=== PATIENT | female | born 1995 | race Hispanic/Latino ===

== ENCOUNTER 2022-05-10 12:53 | Emergency (ER) | payer SELFPAY ==
[2022-05-10 13:15] VITALS: BP 135/99
[2022-05-10 14:53] LABS: Basophils # (Auto) 0.1 K/mm3 (0.0-0.1); Eosinophils # (Auto) 0.1 K/mm3 (0.0-0.4); Eosinophils % (Auto) 0.7 % (0.0-4.3); Monocytes # (Auto) 0.6 K/mm3 (0.0-0.8); Monocytes % (Auto) 6.2 % (0.0-7.3)
[2022-05-10 15:25] LABS: Basophils % (Auto) 0.3 % (0.0-1.8); Hematocrit 40.9 % (30.3-42.9); Hemoglobin 13.4 gm/dl (10.1-14.3); Lymphocytes # (Auto) 3.2 K/mm3 (1.2-5.4); Lymphocytes % (Auto) 31.4 % (13.4-35.0); Mean Corpuscular HGB Conc 33 % (30-34); Mean Corpuscular Volume 74 fl (79-97); Platelet Count 276 K/mm3 (140-440); Red Blood Count 5.55 M/mm3 (3.65-5.03)
--- NOTE | 2022-05-10 17:13 | Emergency Department Report ---
ED Female HPI - General Chief complaint: Vaginal Bleeding Stated complaint: PREG WKS?/BLEEDING Time Seen by Provider: 05/10/22 17:11 Source: patient Mode of arrival: Ambulatory Limitations: No Limitations - History of Present Illness Initial comments: Patient is a 26-year-old female that comes to the emergency room with vaginal bleeding after a positive home test. She states that she took several of them within the last 3 weeks. This would be her fifth . Complaint: vaginal bleeding -: Sudden Improves with: none Worsens with: none Are you Now?: Yes Associated Symptoms: denies other symptoms, vaginal bleeding. denies: vaginal discharge, abdominal pain, nausea/vomiting, fever/chills, headaches, loss of appetite, dysuria, hematuria, rash, seizure, shortness of breath, syncope, weakness - Related Data Sexually active: Yes : 4 Allergies Allergy/AdvReac Type Severity Reaction Status Date / Time No Known Allergies Allergy Verified 05/10/22 13:09 ED Review of Systems ROS: Stated complaint: PREG WKS?/BLEEDING Other details as noted in HPI Comment: All other systems reviewed and negative ED Past Medical Hx - Past Medical History Previous Medical History?: No - Surgical History Past Surgical History?: No - Family History Family history: no significant - Social History Smoking Status: Never Smoker Substance Use Type: Alcohol ED Physical Exam - General Limitations: No Limitations General appearance: alert, in no apparent distress - Head Head exam: Present: atraumatic, normocephalic - Eye Eye exam: Present: normal appearance - ENT ENT exam: Present: mucous membranes moist - Neck Neck exam: Present: normal inspection - Respiratory Respiratory exam: Present: normal lung sounds bilaterally. Absent: respiratory distress - Cardiovascular Cardiovascular Exam: Present: regular rate, normal rhythm. Absent: systolic murmur, diastolic murmur, rubs, gallop - GI/Abdominal GI/Abdominal exam: Present: soft, normal bowel sounds - Extremities Exam Extremities exam: Present: normal inspection - Back Exam Back exam: Present: normal inspection - Neurological Exam Neurological exam: Present: alert, oriented X3 - Psychiatric Psychiatric exam: Present: normal affect, normal mood - Skin Skin exam: Present: warm, dry, intact, normal color. Absent: rash ED Course Vital Signs 05/10/22 13:12 Temperature 98.6 F Pulse Rate 112 H Respiratory 16 Rate Blood Pressure 135/99 [Left] O2 Sat by Pulse 99 Oximetry ED Medical Decision Making - Lab Data Result diagrams: 05/10/22 13:53 - Medical Decision Making Lab Results 05/10/22 05/10/22 05/10/22 Range/Units 13:53 13:53 13:53 WBC 10.3 (4.5-11.0) K/mm3 RBC 5.55 H (3.65-5.03) M/mm3 Hgb 13.4 (10.1-14.3) gm/dl Hct 40.9 (30.3-42.9) % MCV 74 L (79-97) fl MCH 24 L (28-32) pg MCHC 33 (30-34) % RDW 14.0 (13.2-15.2) % Plt Count 276 (140-440) K/mm3 Lymph % (Auto) 31.4 (13.4-35.0) % Eagle % (Auto) 6.2 (0.0-7.3) % Eos % (Auto) 0.7 (0.0-4.3) % Baso % (Auto) 0.3 (0.0-1.8) % Lymph # (Auto) 3.2 (1.2-5.4) K/mm3 Eagle # (Auto) 0.6 (0.0-0.8) K/mm3 Eos # (Auto) 0.1 (0.0-0.4) K/mm3 Baso # (Auto) 0.1 (0.0-0.1) K/mm3 Seg Neutrophils % 61.6 (40.0-70.0) % Seg Neutrophils # 6.2 (1.8-7.7) K/mm3 HCG, Quant < 2 (0-4) mIU/mL Blood Type O POSITIVE Vital Signs 05/10/22 13:12 Temperature 98.6 F Pulse Rate 112 H Respiratory 16 Rate Blood Pressure 135/99 [Left] O2 Sat by Pulse 99 Oximetry labs noted hcg quant < 2 Patient informed of her negative test. She states that she took several home test that were positive. This would be her fifth . She endorses vaginal bleeding. She is in no acute distress. Vital signs are normal. Heart rate by provider is 80. Last menstrual period patient does not recall. Patient's abdomen soft nontender. No CVA tenderness. Given hCG of less than 2 and ultrasound has not been a-year-old and a diagnostic value. Patient has been informed of the value. She is to follow-up with [facility]. I have given her referral. Patient being discharged home with discharge plan of care including diet, activity, medications and follow-up. She verbalizes understanding of plan of care. - Differential Diagnosis Rule out Critical care attestation.: If time is entered above; I have spent that time in minutes in the direct care of this critically ill patient, excluding procedure time. ED Disposition Clinical Impression: Negative test Disposition: 01 HOME / SELF CARE / HOMELESS Is pt being admited?: No Does the pt Need Aspirin: No Condition: Stable Additional Instructions: FOLLOW UP WITH OBGYN HCG BLOOD < 2 TODAY (NEGATIVE) Referrals: KENDRICK NAIK MD [Staff Physician] - 3-5 Days Time of Disposition: 17:12
== END 2022-05-11 05:17 | disposition home or self-care (01) ==
LOC: ED 12:53
DX: N93.9 Abnormal uterine and vaginal bleeding, unspecified (principal); Z32.02 Encounter for pregnancy test, result negative
CPT/HCPCS: 36415; 84702; 85025; 86900; 86901; 99283

== ENCOUNTER 2022-05-26 16:36 | Emergency (ER) | payer SELFPAY ==
--- NOTE | 2022-05-27 04:41 | Emergency Department Report ---
ED ENT HPI - General Chief complaint: Dental/Oral Stated complaint: TOOTHACHE/NECK PAIN Time Seen by Provider: 05/27/22 02:59 Source: patient Mode of arrival: Ambulatory Limitations: No Limitations - History of Present Illness MD complaint: tooth pain -: Gradual, days(s) (3) 1 - pain area Severity: moderate Quality: aching, dull Consistency: constant Improves with: none Worsens with: none Context- Dental: history of dental caries, poor dental care Associated Symptoms: toothache - Related Data Previous Rx's Medication Instructions Recorded Last Taken Type Amoxicillin [Amoxicillin TAB] 875 mg PO BID #20 tablet 05/27/22 Unknown Rx Ketorolac [Toradol] 10 mg PO Q6H PRN #15 tablet 05/27/22 Unknown Rx Lidocaine Viscous 2% 5 ml MM Q3H PRN #120 udc 05/27/22 Unknown Rx Allergies Allergy/AdvReac Type Severity Reaction Status Date / Time No Known Allergies Allergy Verified 05/10/22 13:09 ED Dental HPI - General Chief complaint: Dental/Oral Stated complaint: TOOTHACHE/NECK PAIN Time Seen by Provider: 05/27/22 02:59 Source: patient Mode of arrival: Ambulatory Limitations: No Limitations - Related Data Previous Rx's Medication Instructions Recorded Last Taken Type Amoxicillin [Amoxicillin TAB] 875 mg PO BID #20 tablet 05/27/22 Unknown Rx Ketorolac [Toradol] 10 mg PO Q6H PRN #15 tablet 05/27/22 Unknown Rx Lidocaine Viscous 2% 5 ml MM Q3H PRN #120 udc 05/27/22 Unknown Rx Allergies Allergy/AdvReac Type Severity Reaction Status Date / Time No Known Allergies Allergy Verified 05/10/22 13:09 ED Review of Systems ROS: Stated complaint: TOOTHACHE/NECK PAIN Other details as noted in HPI Comment: All other systems reviewed and negative ED Past Medical Hx - Past Medical History Previous Medical History?: No - Surgical History Past Surgical History?: No - Social History Smoking Status: Never Smoker Substance Use Type: Alcohol - Medications Home Medications: Home Medications Medication Instructions Recorded Confirmed Last Taken Type Amoxicillin [Amoxicillin TAB] 875 mg PO BID #20 tablet 05/27/22 Unknown Rx Ketorolac [Toradol] 10 mg PO Q6H PRN #15 tablet 05/27/22 Unknown Rx Lidocaine Viscous 2% 5 ml MM Q3H PRN #120 udc 05/27/22 Unknown Rx ED Physical Exam - General Limitations: No Limitations General appearance: alert, in no apparent distress - Head Head exam: Present: atraumatic, normocephalic - Eye Eye exam: Present: normal appearance, PERRL - ENT ENT exam: Present: normal exam, mucous membranes moist, other (Tenderness to the left lower molar region around tooth #[id number] with no adjacent abscess or gingival trauma. No adenopathy noted. Airway patent tongue uvula midline) - Neck Neck exam: Present: normal inspection - Respiratory Respiratory exam: Present: normal lung sounds bilaterally. Absent: respiratory distress - Cardiovascular Cardiovascular Exam: Present: regular rate, normal rhythm. Absent: systolic murmur, diastolic murmur, rubs, gallop - GI/Abdominal GI/Abdominal exam: Present: soft, normal bowel sounds - Extremities Exam Extremities exam: Present: normal inspection - Back Exam Back exam: Present: normal inspection. Absent: CVA tenderness (R), CVA tenderness (L) - Neurological Exam Neurological exam: Present: alert, oriented X3, CN II-XII intact - Psychiatric Psychiatric exam: Present: normal affect, normal mood - Skin Skin exam: Present: warm, dry, intact, normal color. Absent: rash ED Course Vital Signs 05/26/22 17:48 Temperature 97.8 F Pulse Rate 67 Respiratory 20 Rate Blood Pressure 133/77 [Right] O2 Sat by Pulse 100 Oximetry Critical care attestation.: If time is entered above; I have spent that time in minutes in the direct care of this critically ill patient, excluding procedure time. ED Disposition Clinical Impression: Dentalgia Disposition: HOME / SELF CARE / HOMELESS Is pt being admited?: No Does the pt Need Aspirin: No Condition: Stable Prescriptions: Amoxicillin [Amoxicillin TAB] 875 mg PO BID #20 tablet Lidocaine Viscous 2% 5 ml MM Q3H PRN #120 udc PRN Reason: Pain, Moderate (4-6) Ketorolac [Toradol] 10 mg PO Q6H PRN #15 tablet PRN Reason: Pain Referrals: [facility] [Outside] - 3-5 Days
[2022-05-27 04:51] VITALS: BP 134/67
== END 2022-05-27 04:53 | disposition home or self-care (01) ==
LOC: ED 16:36
DX: K08.89 Other specified disorders of teeth and supporting structures (principal); F10.20 Alcohol dependence, uncomplicated
CPT/HCPCS: 99282